=== PATIENT | female | born 1975 | race African-American/Black ===

== ENCOUNTER 2018-06-06 23:08 | Emergency (ER) | payer OTHER ==
[~2018-06-06] VITALS: Ht 160 cm; Wt 56.8 kg
[~2018-06-06 23:08] MED LIST: OLAN2.5T3 PO; SERT50TA12 PO
[2018-06-07] MEDS ORDERED: ACETAMINOPHEN 325 MG TABLET PO ONE (00:15)
[2018-06-07] MEDS ORDERED: ONDANSETRON HCL 4 MG TABLET PO ONE (00:15)
[2018-06-07 01:16] VITALS: BP 117/79
== END 2018-06-07 01:49 | disposition home or self-care (01) ==
LOC: EMS 23:09
DX: F43.9 Reaction to severe stress, unspecified (principal); F32.9 Major depressive disorder, single episode, unspecified; Z65.9 Problem related to unspecified psychosocial circumstances
CPT/HCPCS: 99283; Q0162

== ENCOUNTER 2021-11-01 04:31 | Emergency (ER) | payer OTHER ==
[~2021-11-01] VITALS: Ht 157.5 cm; Wt 56.8 kg
[~2021-11-01 04:31] MED LIST changes: +SERT-158 PO; -SERT50TA12 PO
[2021-11-01] MEDS ORDERED: ACETAMINOPHEN 500 MG TABLET PO ONE (06:15)
[2021-11-01 06:41] LABS: COVID AG,FIA SOURCE NASOPHARYNGEAL
[2021-11-01] MEDS ORDERED: DiphenhydrAMINE HCL 50 MG/ML VIAL IVP ONE (08:45)
[2021-11-01] MEDS ORDERED: METOCLOPRAMIDE HCL 5 MG/ML 2 ML VIAL IVP ONE (08:45)
[2021-11-01] MEDS ORDERED: KETOROLAC TROMETHAMINE 30 MG/ML VIAL IVP ONE (08:45)
[2021-11-01] MEDS ORDERED: SODIUM CHLORIDE 0.9% 1,000 ML IV ONE (08:45)
[2021-11-01 11:07] VITALS: BP 108/62
== END 2021-11-01 11:08 | disposition home or self-care (01) ==
LOC: EMS 04:43
DX: G43.909 Migraine, unspecified, not intractable, without status migrainosus (principal); F32.9 Major depressive disorder, single episode, unspecified; Z79.899 Other long term (current) drug therapy; Z20.822 Contact with and (suspected) exposure to COVID-19
CPT/HCPCS: 87426; 96361; 96374; 96375; 99285; J1200; J1885; J2765; J7030

== ENCOUNTER 2022-09-22 16:52 | Emergency (ER) | payer OTHER ==
[~2022-09-22] VITALS: Ht 160 cm; Wt 68.2 kg
[2022-09-22 17:19] VITALS: BP 112/69
[2022-09-22 18:05] LABS: COVID AG,FIA SOURCE NASAL SWAB
[2022-09-22 18:25] LABS: INFLUENZA TYPE B NEGATIVE FOR TYPE B (NEGATIVE)
[2022-09-22 18:32] LABS: INFLUENZA TYPE A POSITIVE FOR TYPE A (NEGATIVE)
[2022-09-22] MEDS ORDERED: IBUPROFEN 400 MG TABLET PO ONE (19:15)
[2022-09-22] MEDS ORDERED: OSEL75 PO (19:20)
== END 2022-09-22 19:31 | disposition home or self-care (01) ==
LOC: EMS 16:52
DX: J11.1 Influenza due to unidentified influenza virus with other respiratory manifestations (principal); Z20.822 Contact with and (suspected) exposure to COVID-19; F32.9 Major depressive disorder, single episode, unspecified; R11.2 Nausea with vomiting, unspecified
CPT/HCPCS: 87430; 87804; 99283

== ENCOUNTER 2024-03-30 12:39 | Emergency (ER) | payer OTHER ==
[~2024-03-30] VITALS: Ht 160 cm; Wt 54.5 kg
[~2024-03-30 12:39] MED LIST changes: +OSEL75 PO
[2024-03-30 13:10] LABS: COVID AG,FIA SOURCE NASAL SWAB
[2024-03-30 13:34] LABS: INFLUENZA TYPE A NEGATIVE FOR TYPE A (NEGATIVE); INFLUENZA TYPE B NEGATIVE FOR TYPE B (NEGATIVE); SARS-COV2 (COVID) ANTIGEN,FIA Negative (Negative)
[2024-03-30 13:39] LABS: BASOPHILS % (AUTO) 0.7 % (0.0-2.0); EOSINOPHILS % (AUTO) 1.1 % (1.0-6.0); HEMATOCRIT 39.2 % (36-46); HEMOGLOBIN 12.9 g/dL (12.0-16.0); LYMPHOCYTES # (AUTO) 1.5 K/uL (1.0-4.8); LYMPHOCYTES % (AUTO) 26.1 % (22.0-44.0); MEAN CORPUSCULAR HEMOGLOBIN 29.6 pg (26.0-34.0); MEAN CORPUSCULAR HGB CONC 32.9 G/dL (31.0-37.0); MEAN CORPUSCULAR VOLUME 90 fL (80-100); MONOCYTES # (AUTO) 0.3 K/uL (0.1-1.0); MONOCYTES % (AUTO) 5.6 % (2.0-9.0); NEUTROPHILS # (AUTO) 3.9 K/uL (1.8-7.7); NEUTROPHILS % (AUTO) 66.5 % (40.0-70.0); PLATELET COUNT (AUTO) 250 K/uL (150-450); RED BLOOD CELL COUNT(AUTO) 4.35 MIL/uL (4.00-5.20); RED CELL DISTRIBUTION WIDTH 13.4 % (11.5-14.5); WHITE BLOOD COUNT (AUTO) 5.9 K/uL (4.5-11.0)
[2024-03-30 13:40] LABS: ANION GAP 8 mmol/L (8-16); CALCIUM, TOTAL 9.4 mg/dL (8.8-10.5); CARBON DIOXIDE 27 mmol/L (22-29); CHLORIDE 104 mmol/L (98-107); CREATININE 0.77 mg/dL (0.60-1.30); GLOMERULAR FILTR. RATE CALC > 60 mL/min (>60); GLUCOSE,RANDOM 103 mg/dL (70-110); POTASSIUM 3.9 mmol/L (3.5-5.1); SODIUM SERUM 139 mmol/L (136-145); UREA NITROGEN, BLOOD 9 mg/dL (7-18)
[2024-03-30 13:53] LABS: TROPONIN I-HIGH SENSITIVITY Less Than 4 ng/L (<51)
[2024-03-30 15:14] VITALS: TEMP 98
[2024-03-30] MEDS ORDERED: MECL-134 PO (16:58)
[2024-03-30] MEDS ORDERED: ONDA-104 PO (16:58)
[2024-03-30] MEDS ORDERED: ACET-66 PO (16:58)
[2024-03-30] MEDS ORDERED: MELA3TAB89 PO (16:58)
[2024-03-30 17:00] VITALS: BP 130/84; PULSE 80; RESP 16
[2024-03-30] MEDS ORDERED: OLAN7.5T18 PO (17:04)
[2024-03-30] MEDS ORDERED: SERT-440 PO (17:04)
[2024-03-30] MEDS: ACETAMINOPHEN 500 MG TABLET PO ONE (17:12)
[2024-03-30] MEDS: ONDANSETRON HCL 4 MG TABLET PO ONE (17:12)
[2024-03-30] MEDS: MECLIZINE HCL 25 MG TABLET PO ONE (17:12)
== END 2024-03-30 17:31 | disposition home or self-care (01) ==
LOC: EMS 12:39
DX: G43.909 Migraine, unspecified, not intractable, without status migrainosus (principal); R42 Dizziness and giddiness; F32.A Depression, unspecified; G47.00 Insomnia, unspecified; R05.9 Cough, unspecified; Z20.822 Contact with and (suspected) exposure to COVID-19
CPT/HCPCS: 99285; 71045; 87426; 80048; 84484; 85025; 87804; 36415; 93005; Q0162

== ENCOUNTER 2024-05-30 09:38 | Emergency (ER) | payer OTHER ==
[~2024-05-30] VITALS: Ht 157.5 cm; Wt 61.4 kg
[~2024-05-30 09:38] MED LIST changes: +ACET-66 PO; +MECL-134 PO; +MELA3TAB89 PO; -OLAN2.5T3 PO; +OLAN7.5T18 PO; +ONDA-104 PO; -OSEL75 PO; -SERT-158 PO; +SERT-440 PO
[2024-05-30 09:40] VITALS: TEMP 98.2
[2024-05-30] MEDS ORDERED: OLAN10TA74 PO (09:42)
[2024-05-30 10:12] LABS: BASOPHILS % (AUTO) 0.5 % (0.0-2.0); EOSINOPHILS % (AUTO) 0.4 % (1.0-6.0); HEMATOCRIT 34.5 % (36-46); HEMOGLOBIN 11.5 g/dL (12.0-16.0); LYMPHOCYTES # (AUTO) 1.3 K/uL (1.0-4.8); LYMPHOCYTES % (AUTO) 22.2 % (22.0-44.0); MEAN CORPUSCULAR HEMOGLOBIN 29.6 pg (26.0-34.0); MEAN CORPUSCULAR HGB CONC 33.4 G/dL (31.0-37.0); MEAN CORPUSCULAR VOLUME 89 fL (80-100); MONOCYTES # (AUTO) 0.2 K/uL (0.1-1.0); MONOCYTES % (AUTO) 4.2 % (2.0-9.0); NEUTROPHILS # (AUTO) 4.2 K/uL (1.8-7.7); NEUTROPHILS % (AUTO) 72.7 % (40.0-70.0); PLATELET COUNT (AUTO) 262 K/uL (150-450); RED CELL DISTRIBUTION WIDTH 13.1 % (11.5-14.5); WHITE BLOOD COUNT (AUTO) 5.8 K/uL (4.5-11.0)
[2024-05-30 10:27] LABS: ANION GAP 14 mmol/L (8-16); CARBON DIOXIDE 22 mmol/L (22-29); CHLORIDE 105 mmol/L (98-107); CREATININE 0.72 mg/dL (0.60-1.30); GLOMERULAR FILTR. RATE CALC > 60 mL/min (>60); GLUCOSE,RANDOM 114 mg/dL (70-110); POTASSIUM 3.7 mmol/L (3.5-5.1); SODIUM SERUM 141 mmol/L (136-145); UREA NITROGEN, BLOOD 9 mg/dL (7-18)
[2024-05-30 10:35] LABS: ALANINE AMINOTRANSFERASE 22 U/L (12-78); ALBUMIN 3.4 g/dL (3.4-5.0); ALKALINE PHOSPHATASE 91 U/L (46-116); ASPARTATE AMINOTRANSFERASE 19 U/L (15-37); BILIRUBIN,TOTAL 0.4 mg/dL (0.1-1.0); LIPASE 26 U/L (16-77); TOTAL PROTEIN, SERUM 7.8 g/dL (6.4-8.2)
[2024-05-30 10:44] LABS: COVID AG,FIA SOURCE NASAL SWAB
[2024-05-30 10:49] LABS: APPEARANCE,URINE CLEAR (CLEAR); BILIRUBIN,URINE NEGATIVE (NEGATIVE); COLOR,URINE YELLOW (YELLOW); GLUCOSE, URINE (UA) NEGATIVE (NEGATIVE); KETONES,URINE NEGATIVE (NEGATIVE); LEUKOCYTE ESTERASE ,URINE NEGATIVE (NEGATIVE); NITRATE,URINE NEGATIVE (NEGATIVE); OCCULT BLOOD,URINE TRACE (NEGATIVE); PROTEIN,URINE TRACE mg/dL (NEGATIVE); SPECIFIC GRAVITIY, URINE 1.018 (1.003-1.030); UROBILINOGEN,URINE <=1.0 mg/dL (<=1.0)
[2024-05-30 10:54] LABS: BACTERIA,URINE None Seen /HPF (None Seen); RBC,URINE 0-2 /HPF (0-2); WBC,URINE None Seen /HPF (0-5)
[2024-05-30] MEDS: ACETAMINOPHEN 325 MG TABLET PO ONE (11:03)
[2024-05-30] MEDS: FAMOTIDINE 20 MG TABLET PO ONE (11:03)
[2024-05-30] MEDS: ONDANSETRON HCL 4 MG TABLET PO ONE (11:04)
[2024-05-30 11:33] LABS: SARS-COV2 (COVID) ANTIGEN,FIA Negative (Negative)
[2024-05-30] MEDS ORDERED: ONDA-104 PO (11:35)
[2024-05-30] MEDS ORDERED: ACET-2247 PO (11:35)
[2024-05-30 11:37] LABS: INFLUENZA TYPE A NEGATIVE FOR TYPE A (NEGATIVE); INFLUENZA TYPE B NEGATIVE FOR TYPE B (NEGATIVE)
[2024-05-30 12:08] VITALS: BP 116/74; PULSE 80; RESP 18
== END 2024-05-30 12:12 | disposition home or self-care (01) ==
LOC: EMS 09:41
DX: R11.0 Nausea (principal); R53.83 Other fatigue; Z20.822 Contact with and (suspected) exposure to COVID-19
CPT/HCPCS: 99284; 87426; 80048; 80076; 81001; 83690; 84703; 85025; 87804; 36415; Q0162

== ENCOUNTER 2024-12-06 09:15 | Emergency (ER) | payer OTHER ==
[~2024-12-06] VITALS: Ht 160 cm; Wt 56.8 kg
[~2024-12-06 09:15] MED LIST changes: +ACET-2247 PO; -ACET-66 PO; -MECL-134 PO; +OLAN10TA74 PO; -OLAN7.5T18 PO
[2024-12-06 09:18] VITALS: TEMP 98.9
[2024-12-06 09:31] LABS: COVID AG,FIA SOURCE NASAL SWAB
[2024-12-06 10:03] LABS: SARS-COV2 (COVID) ANTIGEN,FIA Negative (Negative)
[2024-12-06 10:04] LABS: INFLUENZA TYPE A NEGATIVE FOR TYPE A (NEGATIVE); INFLUENZA TYPE B NEGATIVE FOR TYPE B (NEGATIVE)
[2024-12-06] MEDS: SODIUM CHLORIDE 0.9% 1,000 ML IV ONE (10:28)
[2024-12-06 10:31] LABS: BASOPHILS % (AUTO) 0.6 % (0.0-2.0); EOSINOPHILS % (AUTO) 0.5 % (1.0-6.0); HEMATOCRIT 36.6 % (36-46); HEMOGLOBIN 12.3 g/dL (12.0-16.0); LYMPHOCYTES # (AUTO) 1.3 K/uL (1.0-4.8); LYMPHOCYTES % (AUTO) 31.8 % (22.0-44.0); MEAN CORPUSCULAR HGB CONC 33.5 G/dL (31.0-37.0); MEAN CORPUSCULAR VOLUME 89 fL (80-100); MONOCYTES # (AUTO) 0.3 K/uL (0.1-1.0); MONOCYTES % (AUTO) 6.5 % (2.0-9.0); NEUTROPHILS # (AUTO) 2.4 K/uL (1.8-7.7); NEUTROPHILS % (AUTO) 60.6 % (40.0-70.0); PLATELET COUNT (AUTO) 219 K/uL (150-450); RED BLOOD CELL COUNT(AUTO) 4.09 MIL/uL (4.00-5.20); RED CELL DISTRIBUTION WIDTH 13.5 % (11.5-14.5)
[2024-12-06 10:42] LABS: ANION GAP 8 mmol/L (8-16); CARBON DIOXIDE 28 mmol/L (22-29); CHLORIDE 104 mmol/L (98-107); CREATININE 0.75 mg/dL (0.60-1.30); GLOMERULAR FILTR. RATE CALC > 60 mL/min (>60); GLUCOSE,RANDOM 106 mg/dL (70-110); POTASSIUM 4.1 mmol/L (3.5-5.1); SODIUM SERUM 140 mmol/L (136-145); UREA NITROGEN, BLOOD 6 mg/dL (7-18)
[2024-12-06 10:47] LABS: ALANINE AMINOTRANSFERASE 20 U/L (12-78); ALBUMIN 3.8 g/dL (3.4-5.0); ALKALINE PHOSPHATASE 86 U/L (46-116); ASPARTATE AMINOTRANSFERASE 24 U/L (15-37); BILIRUBIN,TOTAL 0.6 mg/dL (0.1-1.0); TOTAL PROTEIN, SERUM 7.5 g/dL (6.4-8.2)
[2024-12-06 11:05] VITALS: BP 112/66; PULSE 74; RESP 16; O2SAT 98
== END 2024-12-06 11:52 | disposition home or self-care (01) ==
LOC: EMS 09:17
DX: R53.1 Weakness (principal); G47.00 Insomnia, unspecified; R11.2 Nausea with vomiting, unspecified; F32.A Depression, unspecified; Z20.822 Contact with and (suspected) exposure to COVID-19
CPT/HCPCS: 99284; 96360; 87426; 80048; 80076; 85025; 87804; 36415; 93005; J7030

== ENCOUNTER 2024-12-14 07:46 | Emergency (ER) | payer OTHER ==
[~2024-12-14] VITALS: Ht 160 cm; Wt 54.0 kg
[2024-12-14 07:55] VITALS: TEMP 98.4
[2024-12-14 09:04] LABS: BASOPHILS % (AUTO) 0.6 % (0.0-2.0); EOSINOPHILS % (AUTO) 0.5 % (1.0-6.0); HEMATOCRIT 36.1 % (36-46); LYMPHOCYTES # (AUTO) 1.3 K/uL (1.0-4.8); MEAN CORPUSCULAR HEMOGLOBIN 29.9 pg (26.0-34.0); MEAN CORPUSCULAR HGB CONC 33.2 G/dL (31.0-37.0); MEAN CORPUSCULAR VOLUME 90 fL (80-100); MONOCYTES # (AUTO) 0.3 K/uL (0.1-1.0); MONOCYTES % (AUTO) 5.2 % (2.0-9.0); NEUTROPHILS # (AUTO) 3.8 K/uL (1.8-7.7); NEUTROPHILS % (AUTO) 69.7 % (40.0-70.0); PLATELET COUNT (AUTO) 252 K/uL (150-450); RED BLOOD CELL COUNT(AUTO) 4.02 MIL/uL (4.00-5.20); RED CELL DISTRIBUTION WIDTH 13.4 % (11.5-14.5); WHITE BLOOD COUNT (AUTO) 5.5 K/uL (4.5-11.0)
[2024-12-14 09:14] LABS: ANION GAP 8 mmol/L (8-16); CALCIUM, TOTAL 8.7 mg/dL (8.8-10.5); CARBON DIOXIDE 28 mmol/L (22-29); CHLORIDE 106 mmol/L (98-107); CREATININE 0.68 mg/dL (0.60-1.30); GLOMERULAR FILTR. RATE CALC > 60 mL/min (>60); GLUCOSE,RANDOM 107 mg/dL (70-110); POTASSIUM 3.9 mmol/L (3.5-5.1); SODIUM SERUM 141 mmol/L (136-145); UREA NITROGEN, BLOOD 8 mg/dL (7-18)
[2024-12-14] MEDS: SODIUM CHLORIDE 0.9% 1,000 ML IV ONE (09:42)
[2024-12-14] MEDS: ONDANSETRON HCL 4 MG/2 ML VIAL IVP ONE (09:42)
[2024-12-14 09:45] LABS: ALBUMIN 3.6 g/dL (3.4-5.0); BILIRUBIN,DIRECT 0.1 mg/dL (0.00-0.20); BILIRUBIN,TOTAL 0.5 mg/dL (0.1-1.0); TOTAL PROTEIN, SERUM 7.2 g/dL (6.4-8.2)
[2024-12-14] MEDS ORDERED: ONDA-104 PO (10:06)
[2024-12-14] MEDS ORDERED: FAMO20 PO (10:06)
[2024-12-14 10:30] VITALS: BP 109/69; PULSE 71; RESP 18; O2SAT 98
== END 2024-12-14 10:56 | disposition home or self-care (01) ==
LOC: EMS 07:49
DX: R53.1 Weakness (principal); R11.2 Nausea with vomiting, unspecified; F32.A Depression, unspecified
CPT/HCPCS: 99283; 96374; 96361; 80048; 80076; 85025; 36415; J2405; J7030

== ENCOUNTER 2025-06-15 21:17 | Emergency (ER) | payer OTHER ==
[~2025-06-15] VITALS: Ht 160 cm; Wt 56.8 kg
[~2025-06-15 21:17] MED LIST changes: +FAMO20 PO
[2025-06-15 21:53] VITALS: BP 130/88; PULSE 89; RESP 18; TEMP 97.5; O2SAT 97
[2025-06-15] MEDS: IBUPROFEN 400 MG TABLET PO ONE (22:38)
[2025-06-15 22:43] LABS: PLATELET COUNT (AUTO) 240 K/uL (150-450); RED BLOOD CELL COUNT(AUTO) 3.89 MIL/uL (4.00-5.20); RED CELL DISTRIBUTION WIDTH 12.9 % (11.5-14.5); WHITE BLOOD COUNT (AUTO) 6.5 K/uL (4.5-11.0)
[2025-06-15 22:59] LABS: CREATININE 0.64 mg/dL (0.60-1.30); GLOMERULAR FILTR. RATE CALC > 60 mL/min (>60); SODIUM SERUM 139 mmol/L (136-145)
[2025-06-15 23:08] LABS: CALCIUM, TOTAL 8.5 mg/dL (8.8-10.5); GLUCOSE,RANDOM 120 mg/dL (70-110); UREA NITROGEN, BLOOD 10 mg/dL (7-18)
[2025-06-16] MEDS ORDERED: HYDR-4808 PO (00:15)
== END 2025-06-16 00:44 | disposition home or self-care (01) ==
LOC: EMS 21:19
DX: F41.9 Anxiety disorder, unspecified (principal); F32.A Depression, unspecified; Z79.899 Other long term (current) drug therapy
CPT/HCPCS: 80048; 85025; 93005; 99284

== ENCOUNTER 2025-10-13 08:10 | Emergency (ER) | payer OTHER ==
[~2025-10-13] VITALS: Ht 160 cm; Wt 56.0 kg
[~2025-10-13 08:10] MED LIST changes: +HYDR-4808 PO
[2025-10-13 08:18] VITALS: TEMP 97.7
[2025-10-13 08:50] LABS: PLATELET COUNT (AUTO) 218 K/uL (150-450); RED BLOOD CELL COUNT(AUTO) 4.07 MIL/uL (4.00-5.20); RED CELL DISTRIBUTION WIDTH 13.2 % (11.5-14.5); WHITE BLOOD COUNT (AUTO) 5.4 K/uL (4.5-11.0)
[2025-10-13 08:53] LABS: COVID AG,FIA SOURCE NASAL SWAB
[2025-10-13 09:00] LABS: CALCIUM, TOTAL 9.0 mg/dL (8.8-10.5); CREATININE 0.73 mg/dL (0.60-1.30); GLOMERULAR FILTR. RATE CALC > 60 mL/min (>60); GLUCOSE,RANDOM 102 mg/dL (70-110); SODIUM SERUM 139 mmol/L (136-145); UREA NITROGEN, BLOOD 10 mg/dL (7-18)
[2025-10-13 09:07] LABS: TROPONIN I-HIGH SENSITIVITY 5 ng/L (<51)
[2025-10-13 09:19] LABS: APPEARANCE,URINE CLEAR (CLEAR); GLUCOSE, URINE (UA) NEGATIVE (NEGATIVE); LEUKOCYTE ESTERASE ,URINE NEGATIVE (NEGATIVE); NITRATE,URINE NEGATIVE (NEGATIVE); OCCULT BLOOD,URINE SMALL (NEGATIVE); SPECIFIC GRAVITIY, URINE 1.024 (1.003-1.030)
[2025-10-13 09:22] LABS: INFLUENZA TYPE A NEGATIVE FOR TYPE A (NEGATIVE); INFLUENZA TYPE B NEGATIVE FOR TYPE B (NEGATIVE); SARS-COV2 (COVID) ANTIGEN,FIA Negative (Negative)
[2025-10-13 09:28] LABS: SQUAMOUS EPITHELIAL CELL,UR Few /LPF (None Seen)
[2025-10-13] MEDS: SODIUM CHLORIDE 0.9% 1,000 ML IV ONE (09:46)
[2025-10-13 11:49] VITALS: BP 124/76; PULSE 64; RESP 17; O2SAT 100
== END 2025-10-13 12:24 | disposition home or self-care (01) ==
LOC: EMS 08:10
DX: R53.1 Weakness (principal); R11.2 Nausea with vomiting, unspecified; R50.9 Fever, unspecified; F32.A Depression, unspecified; Z20.822 Contact with and (suspected) exposure to COVID-19; Z79.899 Other long term (current) drug therapy
CPT/HCPCS: 99285; 96360; 71045; 87426; 80048; 81001; 83880; 84484; 85025; 87804; 36415; 93005; J7030